=== PATIENT | male | born 1990 ===

== ENCOUNTER 2022-12-31 17:48 | Emergency (ER) | payer BC, OTHER ==
[2022-12-31] MEDS ORDERED: Sodium Chloride 0.9% 10 ML Syringe FLUSH PRN (18:40)
[2022-12-31] MEDS ORDERED: Ketamine 200 MG/20 ML MDV IV ONE (18:41)
[2022-12-31] MEDS ORDERED: Sodium Chloride 0.9% 1,000 ML IV SCH (18:45)
[2022-12-31 19:58] LABS: HEMATOCRIT 43.2 % (40.0-54.0); HEMOGLOBIN 14.6 g/dL (13.0-18.0); MEAN CORPUSCULAR HEMOGLOBIN 29.2 pg (27.0-32.0); MEAN CORPUSCULAR HGB CONC 33.8 g/dL (31.0-35.0); MEAN PLATELET VOLUME 12.4 fL (6.0-10.0); RED CELL DISTRIBUTION WIDTH 14.9 % (11.0-16.0); WHITE BLOOD CELL COUNT,WBC 7.5 K/uL (4.0-11.0)
[2022-12-31 20:26] LABS: BLOOD UREA NITROGEN,BUN 14 mg/dL (8-26); BUN/CREATININE RATIO 12.7 (6-25); CALCIUM 8.7 mg/dL (8.5-10.1); CARBON DIOXIDE,CO2 27.4 mmol/L (21.0-32.0); CHLORIDE,CL 106 mmol/L (98-107); ESTIMATED GFR 92 mL/min (>60); GLUCOSE RANDOM 97 mg/dL (74-100); MAGNESIUM 1.9 mg/dL (1.8-2.4); PHOSPHORUS 3.8 mg/dL (2.5-4.9); POTASSIUM,K 4.4 mmol/L (3.5-5.1); SODIUM,NA 143 mmol/L (136-145); TSH ULTRASENSITIVE 1.319 uIU/mL (0.358-3.740)
== END 2022-12-31 23:33 | disposition home or self-care (01) ==
LOC: LB.ED 17:48
DX: F41.1 Generalized anxiety disorder (principal); F48.9 Nonpsychotic mental disorder, unspecified
CPT/HCPCS: 36415; 80048; 83735; 84100; 84443; 85027; 96365; 99284-25; J7030